=== PATIENT | male | born 1955 | race Caucasian/White ===

== ENCOUNTER 2021-04-21 05:52 | Day surgery (SDC) | payer OTHER ==
[2021-04-21 06:36] VITALS: BP 153/84
[2021-04-21] MEDS ORDERED: LACTATED RINGERS 1,000 ML IV SCH (07:00)
[2021-04-21] MEDS ORDERED: CHLORHEXIDINE 15 ML UDC PO ONE (07:00)
[2021-04-21 07:26] LABS: ALBUMIN 3.9 g/dL (3.4-5.0); ANION GAP 5 mmol/L (5-15); CALCIUM 9.1 mg/dL (8.5-10.1); CHLORIDE 103 mmol/L (98-107)
[2021-04-21 07:30] LABS: ALANINE AMINOTRANSFERASE 51 U/L (12-78); ALKALINE PHOSPHATASE 89 U/L (45-117); BILIRUBIN,TOTAL 0.6 mg/dL (0.2-1.0); CREATININE 0.83 mg/dL (0.7-1.3); TOTAL PROTEIN 7.9 g/dL (6.4-8.2)
[2021-04-21] MEDS ORDERED: SUGAMMADEX 200 MG/2 ML IVPush ONE (08:20)
[2021-04-21] MEDS ORDERED: ROCURONIUM 10 MG/ML,10ML ONE (08:20)
[2021-04-21] MEDS ORDERED: SUCCINYLCHOLINE 20 MG/ML, 10ML ONE (08:20)
[2021-04-21] MEDS ORDERED: ONDANSETRON 2MG/ML, 2ML ONE (08:20)
[2021-04-21] MEDS ORDERED: PROPOFOL 10 MG/ML, 20ML ONE (08:20)
== END 2021-04-21 10:00 | disposition home or self-care (01) ==
LOC: OUT 05:52 → EDSTATUS 08:00 → OUT 10:00
PROVIDERS: ATTEND Internal Medicine Geriatric Medicine
DX: M54.17 Radiculopathy, lumbosacral region (principal); M48.061 Spinal stenosis, lumbar region without neurogenic claudication; I10 Essential (primary) hypertension; E11.9 Type 2 diabetes mellitus without complications; E78.2 Mixed hyperlipidemia; E66.9 Obesity, unspecified; Z68.37 Body mass index [BMI] 37.0-37.9, adult; Z79.84 Long term (current) use of oral hypoglycemic drugs; Z79.899 Other long term (current) drug therapy; Z88.8 Allergy status to other drugs, medicaments and biological substances; Z82.49 Family history of ischemic heart disease and other diseases of the circulatory system
CPT/HCPCS: 36415; 72148; 80053; 82962; 93005; J0330; J2405; J2704; J7120